=== PATIENT | female | born 2000 | race Caucasian/White ===

== ENCOUNTER 2022-12-07 19:41 | Emergency (ER) | payer BC, SELFPAY ==
[2022-12-07 19:58] VITALS: BP 125/73; PULSE 75; RESP 16; TEMP 36.5; O2SAT 100
--- NOTE | 2022-12-07 20:08 | ED.URI ---
HPI - URI/Sore Throat General Chief Complaint: Upper Respiratory Infection Stated Complaint: sorethroat Time Seen by Provider: 12/07/22 20:00 Source: patient, RN notes reviewed and old records reviewed Mode of arrival: ambulatory Limitations: no limitations History of Present Illness HPI Narrative: 22-year-old female who presents to [facility] with complaints of sore throat, sinus congestion and drainage for the past 4 days with no fevers or cough. Patient has taken some Excedrin for her headache pain . 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 MD elicited complaint: sore throat, rhinorrhea and nasal congestion Onset (ago): day(s) (4) Treatments prior to arrival: acetaminophen Related Data Home Medications Medication Instructions Recorded Confirmed lamotrigine 100 mg tablet 100 mg PO DAILY 12/07/22 12/07/22 norgestimate 0.18 mg/0.215 mg/0.25 1 tablet PO DAILY 12/07/22 12/07/22 mg-ethinyl estradiol 25 mcg tablet ([id number]) quetiapine 50 mg tablet 50 mg PO DAILY 12/07/22 12/07/22 Allergies Allergy/AdvReac Type Severity Reaction Status Date / Time No Known Allergies Allergy Verified 12/07/22 19:56 Review of Systems Review of Systems: CONSTITUTIONAL: Denies malaise, chills, sweats, or fever. EYES: Denies visual changes, redness, or discharge. ENT: Reports rhinorrhea, congestion,no sinus pain, no otalgia, positive for sore throat. CARDIOVASCULAR: Denies chest pain, palpitations, or edema. RESPIRATORY: Reports no cough.? Denies dyspnea. GASTROINTESTINAL: Denies abdominal pain, nausea, vomiting, diarrhea SKIN: Denies rash or itching. MUSCULOSKELETAL: Denies myalgia. NEUROLOGIC:Reports headache. All systems reviewed & are unremarkable except as noted in HPI and below PMFSH Past Medical History Medical History (Updated 12/11/22 @ 09:21 by Carole Hernandez NP) Bipolar disorder Family History Family History (Updated 05/09/13 @ 14:08 by DOCTOR UNKNOWN) Other Cerebrovascular accident Diabetes mellitus Family history of cardiovascular disease Hypertension Social History Social History Smoking status: Never smoker Alcohol intake: never Comments At time of signature, agree with nursing past medical, surgical, social and family history. There is no relevant family history pertinent to the presenting complaint Exam Narrative: GENERAL: Well-appearing, well-nourished, and in no acute distress. HEAD: Normocephalic EYES: PERRLA, conjunctivae clear ENT: Nares clear, turbinates edematous and erythematous, clear discharge. Mucous membranes moist. TM pearly salcedo with dull light reflex bilaterally; no tragal tenderness. Oropharynx erythematous without lesions. Tonsils not enlarged and without exudate, no drooling, no hoarseness, no trismus, uvula midline, some post nasal discharge noted NECK: Supple. No lymphadenopathy CHEST: Clear to auscultation, breath sounds equal. No wheezing, rhonchi, rales, or stridor. No respiratory distress, speaks in full sentences.SAO2 100% on room air HEART: Regular rate and rhythm. No murmur heard. SKIN: Warm, dry, no rash. NEURO: Alert and oriented x3. PSYCH: Normal mood and affect Course Course Emergency Course: Patient is aware of diagnosis, understands and agrees to treatment plan.? Anticipatory guidance given.? Patient agrees to follow-up as directed and is aware of reasons to seek care at the emergency department. Portions of this record may have been created with voice recognition software Level of Care: Express Care Visit Vital Signs Vital signs: Vital Signs Temperature 36.5 C 12/07/22 19:58 Pulse Rate 75 12/07/22 19:58 Respiratory Rate 16 12/07/22 19:58 Blood Pressure 125/73 12/07/22 19:58 Pulse Oximetry 100 12/07/22 19:58 Oxygen Delivery Room Air 12/07/22 19:58 Temperature 36.5 C 12/07/22 19:58 Pulse R
== END 2022-12-07 20:25 | disposition home or self-care (01) ==
PROVIDERS: Emergency Provider Registered Nurse; PCP Nurse Practitioner Family
DX: J06.9 Acute upper respiratory infection, unspecified (principal); J02.9 Acute pharyngitis, unspecified; F31.9 Bipolar disorder, unspecified
CPT/HCPCS: 87081; 87880; 99213; G0463

== ENCOUNTER 2023-09-11 19:45 | Emergency (ER) | payer BC, SELFPAY ==
--- NOTE | 2023-09-11 19:53 | ED.GENADULT ---
HPI - General Adult General Chief complaint: Ear Stated complaint: bilateral ear discomfort Time Seen by Provider: 09/11/23 19:53 Source: patient Mode of arrival: ambulatory Limitations: no limitations History of Present Illness HPI narrative: 23-year-old female patient presents to the [facility] with complaints of bilateral ear pains for the past 2-3 months. Patient states that today the kids were being loud and the dog was barking which was really causing her ears to be painful and when to come and get them checked out today. Patient states she did take some Tylenol this morning unable to take ibuprofen due to her history of anemia. Patient denies any fevers, body aches or chills. Denies any runny nose, congestion. Denies any discharge coming from the ear. Denies any sore throat or any sick symptoms at this time. Related Data Home Medications Medication Instructions Recorded Confirmed lamotrigine 100 mg tablet 100 mg PO DAILY 12/07/22 09/11/23 norgestimate 0.18 mg/0.215 mg/0.25 1 tablet PO DAILY 12/07/22 09/11/23 mg-ethinyl estradiol 25 mcg tablet ([id number]) quetiapine 50 mg tablet 100 mg PO HS 12/07/22 09/11/23 Allergies Allergy/AdvReac Type Severity Reaction Status Date / Time No Known Allergies Allergy Verified 09/11/23 19:58 Review of Systems Review of Systems: CONSTITUTIONAL: Denies fever, chills, or sweats. EYES: Denies visual changes, redness, or discharge. ENT: Denies rhinorrhea, congestion, sore throat, Positive bilateralotalgia. CARDIOVASCULAR: Denies chest pain, palpitations, or edema. RESPIRATORY: Denies cough or dyspnea. GASTROINTESTINAL: Denies abdominal pain, nausea, vomiting, or diarrhea. GENITOURINARY: Denies dysuria or hematuria. SKIN: Denies rash or itching. MUSCULOSKELETAL: Denies back pain, joint pain, or myalgia. NEUROLOGIC: Denies headache, numbness, or weakness. PSYCHIATRIC: Denies anxiety or depression. [facility] Past Medical History Medical History Bipolar disorder Family History Family History Other Cerebrovascular accident Diabetes mellitus Family history of cardiovascular disease Hypertension Social History Social History Smoking status: Never smoker Alcohol intake: never Comments At the time of my signature I agree with nursing past medical history, surgical, social, and family history. There is no relevant family history pertinent to the presenting complaint. Exam Narrative: GENERAL: Well-appearing, well-nourished, and in no acute distress. HEAD: Normocephalic, atraumatic. EYES: PERRLA and EOMI. ENT: Nares clear, no rhinorrhea or epistaxis. Mucous membranes moist. posterior pharynx no erythema, tonsillar joint, exudates or lesions present. Fluid noted to bilateral TMs but no erythema no signs symptoms of infection at this time. NECK: Supple. No lymphadenopathy CHEST: Clear to auscultation. No respiratory distress. HEART: Regular rate and rhythm. No murmur heard. Normal peripheral pulses. ABDOMEN: Soft, nontender, nondistended, normal active bowel sounds. EXTREMITIES: Normal range of motion. No edema. SKIN: Warm, dry, no rash. NEURO: No focal deficits. Alert and oriented x3. Course Course Level of Care: Express Care Visit Vital Signs Vital signs: Vital Signs Temperature 36.6 C 09/11/23 19:55 Pulse Rate 68 09/11/23 19:55 Respiratory Rate 18 09/11/23 19:55 Blood Pressure 127/68 09/11/23 19:55 Pulse Oximetry 100 09/11/23 19:55 Oxygen Delivery Room Air 09/11/23 19:55 Temperature 36.6 C 09/11/23 19:55 Pulse Rate 68 09/11/23 19:55 Respiratory Rate 18 09/11/23 19:55 Blood Pressure 127/68 09/11/23 19:55 Pulse Oximetry 100 09/11/23 19:55 Oxygen Delivery Room Air 09/11/23 19:55 Vital signs reviewed. Medical Decision Abel
[2023-09-11 19:55] VITALS: BP 127/68; PULSE 68; RESP 18; TEMP 36.6; O2SAT 100
== END 2023-09-11 20:11 | disposition home or self-care (01) ==
PROVIDERS: Emergency Provider Nurse Practitioner Family
DX: H73.893 Other specified disorders of tympanic membrane, bilateral (principal); F31.9 Bipolar disorder, unspecified
CPT/HCPCS: 99213; G0463

== ENCOUNTER 2024-02-06 20:21 | Emergency (ER) | payer BC, SELFPAY ==
[2024-02-06 20:27] VITALS: BP 136/89; PULSE 104; RESP 20; TEMP 36.2; O2SAT 100
[2024-02-06 22:13] LABS: Glucose Point of Care 84 mg/dl (65-105)
--- NOTE | 2024-02-06 22:24 | ED.FEMALEGU ---
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 Patient states that she is currently being treated for bacterial vaginosis and a yeast infection since Tuesday of last week. Patient admits that ever since she had her kid 3 years ago she has been getting recurrent yeast infections. She denies any history of diabetes but states that while she was she was informed that she has 1 point away from being prediabetic. Patient states that recently she has been having some vaginal irritation and itching, however, she recently looked at her vagina and was concerned that it did not look like how it normally looks. Patient states that her vaginal opening seems to be closed and is concerned that she has uterine patient denies any lower abdominal pelvic pain, denies any pelvic pressure, any dysuria or hematuria. There are no other modifying, alleviating, or precipitating factors at this time. Related Data Home Medications Medication Instructions Recorded Confirmed lamotrigine 100 mg tablet 100 mg PO DAILY 12/07/22 09/11/23 norgestimate 0.18 mg/0.215 mg/0.25 1 tablet PO DAILY 12/07/22 09/11/23 mg-ethinyl estradiol 25 mcg tablet (Poc-[id number]) quetiapine 50 mg tablet 100 mg PO HS 12/07/22 09/11/23 Allergies Allergy/AdvReac Type Severity Reaction Status Date / Time No Known Allergies Allergy Verified 02/06/24 20:46 Review of Systems Review of Systems: All systems are reviewed and are negative unless stated otherwise in the HPI. [facility] Past Medical History Medical History Bipolar disorder Family History Family History Other Cerebrovascular accident Diabetes mellitus Family history of cardiovascular disease Hypertension Social History Social History Smoking status: Never smoker Alcohol intake: never Exam Narrative: General: Alert, awake, afebrile, very anxious. HEENT: PERRL, no rhinorrhea, no post nasal drip, oropharynx clear. Neck: Trachea midline, no JVD, no lymphadenopathy. Cardiovascular: Regular rate and rhythm, no murmurs, rubs or gallops, no peripheral edema. Respiratory: Clear to auscultation bilaterally, no tachypnea, no wheezing, no rhonchi, no rubs, no respiratory distress. Abdomen: Soft, nontender, nondistended, no rebound, no guarding, no peritoneal signs. Pelvic: Exam performed revealed normal external genitalia, normal vaginal canal with some irritation to the emergency vaginal mucosa. Speculum exam performed and cervix was visualized revealing no lesions, no cervical motion tenderness, mild clear whitish discharge. Musculoskeletal: No joint swelling or deformity, normal muscle tone. Skin: No rashes or petechia, no signs of infection. Psychiatric: Alert and oriented, normal behavior and judgment for situation. Neurological: Alert and oriented to person, place, and time. Follows all commands. No focal deficits, speech is clear and fluent. Course Vital Signs Vital signs: Vital Signs Temperature 97.1 F L 02/06/24 20: Pulse Rate 104 H 02/06/24 20:27 Respiratory Rate 20 02/06/24 20:27 Blood Pressure 136/89 02/06/24 20:27 Pulse Oximetry 100 02/06/24 20:27 Oxygen Delivery Room Air 02/06/24 20:27 Temperature 97.1 F L 02/06/24 20:27 Pulse Rate 104 H 02/06/24 20:27 Respiratory Rate 20 02/06/24 20:27 Blood Pressure 136/89 02/06/24 20:27 Pulse Oximetry 100 02/06/24 20:27 Oxygen Delivery Room Air 02/06/24 20:27 MDM - Female Genitourinary MDM Narrative Medical decision making narrative: The patient was evaluated by myself in the emergency de
== END 2024-02-06 22:31 | disposition home or self-care (01) ==
PROVIDERS: Emergency Provider Emergency Medicine
DX: N76.0 Acute vaginitis (principal); B37.31 Acute candidiasis of vulva and vagina; F31.9 Bipolar disorder, unspecified
CPT/HCPCS: 82948; 99284